=== PATIENT | female | born 1970 | race Caucasian/White ===

== ENCOUNTER → 2018-09-12 | Outpatient (CLI) | payer BC, OTHER ==
[2015-02-25 10:46] VITALS: BP 117/79
[~2018-09-12] MED LIST: ASPI325T8 PO; CALC-614 PO; CYAN100072 PO; DEXT10CA9 PO; KRIL500C PO; MULT-223 PO; VITA1TAB31 PO; [UNRECOGNIZED DRUG - CODE] PO; birthcontrol PO
--- NOTE | 2018-09-12 12:53 | KCIC ---
Bilateral digital screening mammograms: Reason for examination: Routine screening. Comparison is made to previous study dated 07/13/2014. Interpretation was made with the benefit of CAD. The skin and nipples show no abnormalities. No abnormal axillary lymph nodes are seen. The breast parenchyma shows scattered fibroglandular density. (Breast density: Category B.) There appears to be a new 5 mm circumscribed nodule present in the 6:00 position posteriorly in the right breast. Recommend further evaluation with ultrasound. There are no other new dominant masses, suspicious calcifications or architectural distortions. Impression: 5 mm nodule at the 6:00 position posteriorly in the right breast. Recommend further evaluation with ultrasound. BI-RADS Category 0: Incomplete. Needs additional imaging evaluation. "Our facility is accredited by the [employer] Mammography [employer]." This patient's information has been entered into a reminder system for the patient to be notified with the results of her examination and a target date for the next mammogram. Electronically signed by: Peg Feldman MD (09/12/2018 12:50 PM) [id number]
== END | disposition home or self-care (01) ==
LOC: KCIC MAMMO 10:36
PROVIDERS: ATTEND Specialist
DX: Z12.31 Encounter for screening mammogram for malignant neoplasm of breast (principal)
CPT/HCPCS: 77067

== ENCOUNTER → 2019-02-19 | Outpatient (CLI) | payer BC ==
[2015-02-25 10:46] VITALS: BP 117/79
[~2019-02-19] MED LIST changes: -MULT-223 PO; +MULT-629 PO
--- NOTE | 2019-02-19 09:20 | KCIC ---
EXAM: Right breast diagnostic mammogram; right breast sonogram. HISTORY: 48-year-old female presents for 6 month follow-up evaluation of nodularity likely due to a benign fibrocystic lesion within the right breast demonstrated on a mammogram and sonogram dated 09/12/2018 and 09/19/2018. TECHNIQUE: Full-field digital craniocaudal and mediolateral oblique views of the right breast are obtained for evaluation. Computer aided detection with [employer] software version 9.3 was applied. Sonographic imaging of the right breast including all 4 quadrants and the retroareolar region was performed. COMPARISON: 09/12/2018, 09/19/2018, 07/13/2014 BREAST PARENCHYMAL DENSITY: Level B - Scattered fibroglandular densities. FINDINGS: There is no new suspicious mass, microcalcification or region of architectural distortion. There is a stable small nodular density within the 7:00 position of the right breast at mid to posterior depth. Sonographic imaging of the right breast demonstrates no significant change in a 4.4 mm suspected benign fibrocystic lesion at the 7:00 position 3 cm from the nipple. This likely corresponds with the finding of aforementioned nodular density on the mammogram portion of the exam. There is also stable ductal dilatation within the subareolar aspect of the right breast primarily at the 6:00 addition. No intraductal lesion is seen. IMPRESSION: 1. Stable suspected tiny benign fibrocystic lesion within the 7:00 position of the right breast and right breast subareolar ductal dilatation. There is no new suspicious mammographic or sonographic finding. 2. BI-RADS Category 2: Benign finding(s). The patient will be due for bilateral mammography in 6-7 months according to a previously established bilateral mammography interval. If your mammogram demonstrates that you have dense breast tissue, which could hide abnormalities, and if you have other risk factors for breast cancer that have been identified, you might benefit from supplemental screening tests that may be suggested by your ordering physician. Dense breast tissue, in and of itself, is a relatively common condition. This information is not provided to cause undue concern, but rather to raise your awareness and to promote discussion with your physician regarding the presence of other risk factors, in addition to dense breast tissue. A report of your mammography results will be sent to you and your physician. You should contact your physician if you have any questions or concerns regarding this report. Mammography is a sensitive method for finding small breast cancers, but it does not detect them all and is not a substitute for careful clinical examination. A negative mammogram does not negate a clinically suspicious finding and should not result in delay in biopsying a clinically suspicious abnormality. PQRS compliance statement - Patient information was entered into a reminder system with a target due date for the next mammogram. "Our facility is accredited by the [employer]." Electronically signed by: Maria Alejandra Sawyer MD (02/19/2019 9:17 AM) [facility]
== END | disposition home or self-care (01) ==
LOC: KCIC MAMMO 07:45
PROVIDERS: ATTEND Specialist
DX: N64.89 Other specified disorders of breast (principal)
CPT/HCPCS: 76641; 77065

== ENCOUNTER → 2019-10-22 | Outpatient (CLI) | payer BC ==
[2015-02-25 10:46] VITALS: BP 117/79
--- NOTE | 2019-10-22 13:32 | KCIC ---
EXAM: Right knee, 3 views. HISTORY: Pain. COMPARISON: 08/13/2014 FINDINGS: 3 views of the right knee are obtained. There is no acute fracture, dislocation or subluxation. There is minimal medial compartment spurring. There is medial and lateral compartment chondrocalcinosis. There is a fixation screw within the distal femoral metaphysis. There is a small joint effusion. IMPRESSION: 1. Minimal medial compartment osteoarthritis of the right knee. 2. Right knee, calcinosis. 3. Small right knee effusion. Electronically signed by: Maria Alejandra Sawyer MD (10/22/2019 1:29 PM) [facility]
== END | disposition home or self-care (01) ==
LOC: KCIC 13:12
PROVIDERS: ATTEND Family Medicine
DX: M17.11 Unilateral primary osteoarthritis, right knee (principal); M25.461 Effusion, right knee; M11.261 Other chondrocalcinosis, right knee
CPT/HCPCS: 73562

== ENCOUNTER → 2020-03-17 | Outpatient (CLI) | payer BC ==
[2015-02-25 10:46] VITALS: BP 117/79
--- NOTE | 2020-03-17 16:22 | KCIC ---
Bilateral digital screening mammograms: Reason for examination: Routine screening. Comparison is made to previous studies dated 02/19/2019 and 09/12/2018. Interpretation was made with the benefit of CAD. The skin and nipples show no abnormalities. No abnormal axillary lymph nodes are seen. The breast parenchyma shows scattered fibroglandular density. (Breast density: Category B.) There is a small nodule consistent with an intramammary lymph node at the 2:00 C position of the left breast which is stable. There are no new dominant masses, suspicious calcifications or architectural distortions. Impression: No evidence of malignancy. Recommend routine screening. BI-RADS Category 2: Benign. "Our facility is accredited by the [employer] Mammography Program." This patient's information has been entered into a reminder system for the patient to be notified with the results of her examination and a target date for the next mammogram. Electronically signed by: Peg Feldman MD (03/17/2020 4:19 PM) [email or web address]
== END ==
LOC: KCIC MAMMO 15:20
PROVIDERS: ATTEND Family Medicine
DX: Z12.31 Encounter for screening mammogram for malignant neoplasm of breast (principal)
CPT/HCPCS: 77067

== ENCOUNTER → 2021-04-04 | Outpatient (CLI) | payer BC ==
[2015-02-25 10:46] VITALS: BP 117/79
--- NOTE | 2021-04-04 15:24 | KCIC ---
Bilateral digital screening mammograms: Reason for examination: Routine screening. Comparison is made to previous studies dated back to 07/13/2014. Interpretation was made with the benefit of CAD. The skin and nipples show no abnormalities. No abnormal axillary lymph nodes are seen. The breast par enchyma shows scattered fibroglandular density. (Breast density: Category B.) There continues to be a small nodule consistent with an intramammary lymph node at the 2:00 C position of the left breast wh ich is stable. There are no new dominant masses, suspicious calcifications or architectural distortio ns. Impression: No evidence of malignancy. Recommend routine screening. BI-RADS Category 2: Benign. "Our facility is accredited by the [employer] Mammography [employer]." This patient's information has been entered into a reminder system for the patient to be notified wit h the results of her examination and a target date for the next mammogram. Electronically signed by: Peg Feldman MD (04/04/2021 3:22 PM) [email or web address]
== END ==
LOC: KCIC MAMMO 13:29
PROVIDERS: ATTEND Specialist
DX: Z12.31 Encounter for screening mammogram for malignant neoplasm of breast (principal)
CPT/HCPCS: 77067